=== PATIENT | male | born 1945 | race Two or more races ===

== ENCOUNTER 2021-03-11 11:44 | Inpatient (IN) | payer MEDICARE, SELFPAY ==
[~2021-03-11] VITALS: Ht 180.3 cm; Wt 93.4 kg
[2021-03-11 12:35] LABS: BASOPHILS % 0.5 % (0.0-2.0); EOSINOPHILS % 0.1 % (0.0-5.0); HEMATOCRIT. 43.1 % (42.0-52.0); HEMOGLOBIN. 15.1 g/dL (14.0-18.0); LYMPHOCYTES % 9.9 % (20.0-50.0); MEAN CORPUSCULAR HEMOGLOBIN 30.1 pg (28.0-32.0); MEAN CORPUSCULAR VOLUME 86.3 fL (80.0-94.0); MEAN PLATELET VOLUME 8.2 fl (7.4-10.4); MONOCYTES % 9.3 % (2.0-8.0); NEUTROPHILS % 80.2 % (40.0-76.0); PLATELET 177 x1000/uL (130-400); RED CELL DISTRIBUTION WIDTH 13.3 % (11.6-14.6)
[2021-03-11 12:42] LABS: CHLORIDE 111 mEq/L (98-107)
[2021-03-11 12:45] LABS: D-DIMER 2.56 mg/L FEU (<0.50); INR 1.2
[2021-03-11] MEDS ORDERED: IOHEXOL-350 100 ML BOTTLE ONE (13:59)
[2021-03-11] MEDS ORDERED: HEPARIN 5000 UNITS/ML VIAL IV SCH (14:15)
[2021-03-11] MEDS ORDERED: HEPARIN 25,000 UNITS PREMIX 250 ML IV PRN (14:15)
[2021-03-11] MEDS ORDERED: HEPARIN 80 UNITS/KG BOLUS IV SCH (15:15)
[2021-03-11] MEDS ORDERED: HEPARIN BOLUS PRN aPTT 37-44 IV (15:15)
[2021-03-11] MEDS ORDERED: HEPARIN BOLUS PRN aPTT <36 IV (15:15)
[2021-03-11] MEDS ORDERED: LIDOCAINE HCL/PF 1% 2ML VIAL ONE (15:46)
[2021-03-11] MEDS ORDERED: CLONIDINE 0.1MG TABLET PO PRN (16:00)
[2021-03-11] MEDS ORDERED: NA PHOS,M-B/NA PHOS,DI-BA ENEMA 118ML PR PRN (16:00)
[2021-03-11] MEDS ORDERED: GUAIFENESIN 200MG/10ML SUGAR FREE UDC PO PRN (16:00)
[2021-03-11] MEDS ORDERED: MORPHINE SULFATE 2 MG/ML CPJ (NOT FOR IM USE) IV PRN (16:00)
[2021-03-11] MEDS ORDERED: ACETAMINOPHEN 650MG SUPP PR PRN (16:00)
[2021-03-11] MEDS ORDERED: DILTIAZEM HCL 125 MG in DEXT 5% WATER 100 ML IV PRN (16:00)
[2021-03-11] MEDS ORDERED: DIPHENHYDRAMINE 50MG/ML VIAL IV PRN (16:00)
[2021-03-11] MEDS ORDERED: IPRATROPIUM/ALBUTEROL 0.5-3(2.5)MG/3ML NEB NEB PRN (16:00)
[2021-03-11] MEDS ORDERED: HYDROCODONE/ACETAMINOPHEN 5/325MG TABLET PO PRN (16:00)
[2021-03-11] MEDS ORDERED: ONDANSETRON HCL 4MG/2ML INJ IV PRN (16:00)
[2021-03-11] MEDS ORDERED: DOCUSATE SODIUM 100MG CAPSULE PO PRN (16:00)
[2021-03-11] MEDS ORDERED: LORAZEPAM 0.5MG TABLET PO PRN (16:00)
[2021-03-11] MEDS ORDERED: ACETAMINOPHEN 325MG TABLET PO PRN (16:00)
[2021-03-11] MEDS ORDERED: MAGNESIUM/ALUMINUM HYDROXIDE/SIMETHICONE 30ML UDC PO PRN (16:00)
[2021-03-11] MEDS ORDERED: DILTIAZEM HCL 5MG/ML 5ML VIAL IV NR (16:19)
[2021-03-11] MEDS ORDERED: ENOXAPARIN 100MG/ML SYR SUBCUT SCH ×2 (16:30→18:00)
[2021-03-11] MEDS ORDERED: NALOXONE HCL 0.4MG/ML VIAL IV PRN (16:30)
[2021-03-11] MEDS ORDERED: AZITHROMYCIN 500 MG in DEXT 5% WATER 250 ML IV SCH (16:30)
[2021-03-11] MEDS ORDERED: CEFTRIAXONE 1 G PREMIX 50 ML IV SCH (16:30)
[2021-03-11 16:38] LABS: BG BASE EXCESS -2.1 mmol/L (-2.0-2.0); BG CARBOXYHEMOGLOBIN 1.4 % (0.5-1.5); BG DEOXYHEMOGLOBIN 1.7 % (0.0-5.0); BG FRACTION INSPIRED OXYGEN 32; BG HCO3 ACT 20.6 mmol/L (22.0-26.0); BG METHEMOGLOBIN 0.2 % (0.0-1.5); BG OXYGEN SATURATION 98.3 % (92.0-98.5); BG OXYHEMOGLOBIN 96.7 % (94.0-97.0); BG PCO2 30.2 mmHg (35.0-45.0); BG PH 7.451 (7.350-7.450); BG PO2 106.8 mmHg (75.0-100.0); BG SAMPLE SITE RIGHT RADIAL; BG TOTAL HEMOGLOBIN 16.1 g/dL (12.0-18.0); BG VENT MODE NASAL CANNULA
[2021-03-11] MEDS: DILTIAZEM HCL 30MG TABLET PO SCH ×3 (18:57→23:36)
[2021-03-11] MEDS: POTASSIUM CHLORIDE 20MEQ TABLET SR PO NR ×2 (18:57→19:00)
[2021-03-11] MEDS: DIGOXIN 500MCG/2ML AMP IV NR ×2 (18:58→18:59)
[2021-03-11 22:00] VITALS: BP 151/72
[2021-03-11 22:15] VITALS: BP 151/72
[2021-03-11] MEDS: FAMOTIDINE 20MG/2ML VIAL IV SCH (23:06)
[2021-03-11] MEDS: ENOXAPARIN 100MG/ML SYR SUBCUT SCH (23:35)
[2021-03-11] MEDS: DILTIAZEM HCL 125 MG in DEXT 5% WATER 100 ML IV SCH (23:39)
[2021-03-12] VITALS (12 sets, daily range): BP systolic 113–177; BP diastolic 80–101
[2021-03-12 00:11] LABS: CREATINE KINASE 182 IU/L (39-308)
[2021-03-12 00:12] LABS: CREATINE KINASE MB FRACTION 1.4 ng/mL (0.5-3.6)
[2021-03-12] MEDS: DILTIAZEM HCL 30MG TABLET PO SCH ×2 (05:38→11:34)
[2021-03-12] MEDS: FAMOTIDINE 20MG/2ML VIAL IV SCH (08:07)
[2021-03-12 08:22] LABS: BASOPHILS % 0.2 % (0.0-2.0); EOSINOPHILS % 0.1 % (0.0-5.0); HEMATOCRIT. 41.5 % (42.0-52.0); HEMOGLOBIN. 14.3 g/dL (14.0-18.0); LYMPHOCYTES % 13.2 % (20.0-50.0); MEAN CORPUSCULAR HEMOGLOBIN 30.1 pg (28.0-32.0); MEAN CORPUSCULAR VOLUME 87.3 fL (80.0-94.0); MEAN PLATELET VOLUME 8.8 fl (7.4-10.4); NEUTROPHILS % 76.5 % (40.0-76.0); PLATELET 181 x1000/uL (130-400); RED BLOOD CELL COUNT 4.76 mill/uL (4.7-6.1); RED CELL DISTRIBUTION WIDTH 13.7 % (11.6-14.6)
[2021-03-12 08:54] LABS: CHLORIDE 107 mEq/L (98-107)
[2021-03-12 09:08] LABS: LDL CHOLESTEROL 97 mg/dL (5-100)
[2021-03-12 09:09] LABS: CREATINE KINASE 166 IU/L (39-308); CREATINE KINASE MB FRACTION < 1.0 ng/mL (0.5-3.6); HDL CHOLESTEROL 38 mg/dL (40-59); T4 FREE 1.15 ng/dL (0.76-1.46)
[2021-03-12] MEDS ORDERED: DIGOXIN 500MCG/2ML AMP IV SCH (10:00)
[2021-03-12] MEDS: ENOXAPARIN 100MG/ML SYR SUBCUT SCH ×2 (10:08→20:07)
[2021-03-12] MEDS ORDERED: ADENOSINE 3 MG/ML 2ML VIAL IV SCH (10:15)
[2021-03-12] MEDS ORDERED: POTASSIUM CHLORIDE 20MEQ TABLET SR PO SCH (10:45)
[2021-03-12 11:07] LABS: HEPATITIS B SURFACE ANTIGEN NEGATIVE
[2021-03-12] MEDS: DILTIAZEM HCL 125 MG in DEXT 5% WATER 100 ML IV SCH (14:51)
[2021-03-12] MEDS: AZITHROMYCIN 500 MG in DEXT 5% WATER 250 ML IV SCH (17:21)
[2021-03-12] MEDS: DILTIAZEM HCL 60MG TABLET PO SCH ×2 (18:00→23:20)
[2021-03-12] MEDS: CEFTRIAXONE 1,000 MG in DEXTROSE 5% WATER 50 ML IV SCH (20:03)
[2021-03-12] MEDS ORDERED: ZOLPIDEM TARTRATE 5MG TABLET PO NR (20:45)
[2021-03-13] VITALS (12 sets, daily range): BP systolic 133–153; BP diastolic 65–127
[2021-03-13] MEDS: DILTIAZEM HCL 125 MG in DEXT 5% WATER 100 ML IV SCH (03:54)
[2021-03-13] MEDS: DILTIAZEM HCL 60MG TABLET PO SCH (05:18)
[2021-03-13 06:54] LABS: BASOPHILS % 0.5 % (0.0-2.0); EOSINOPHILS % 0.5 % (0.0-5.0); HEMATOCRIT. 45.2 % (42.0-52.0); HEMOGLOBIN. 15.3 g/dL (14.0-18.0); LYMPHOCYTES % 13.4 % (20.0-50.0); MEAN CORPUSCULAR HEMOGLOBIN 29.5 pg (28.0-32.0); MEAN CORPUSCULAR VOLUME 87.4 fL (80.0-94.0); MEAN PLATELET VOLUME 8.9 fl (7.4-10.4); MONOCYTES % 8.2 % (2.0-8.0); NEUTROPHILS % 77.4 % (40.0-76.0); PLATELET 196 x1000/uL (130-400); RED BLOOD CELL COUNT 5.17 mill/uL (4.7-6.1); RED CELL DISTRIBUTION WIDTH 13.2 % (11.6-14.6)
[2021-03-13 07:09] LABS: PHOSPHORUS 2.6 mg/dL (2.5-4.9)
[2021-03-13] MEDS: ENOXAPARIN 100MG/ML SYR SUBCUT SCH ×2 (08:30→20:52)
[2021-03-13] MEDS: FAMOTIDINE 20MG/2ML VIAL IV SCH (08:30)
[2021-03-13] MEDS ORDERED: POTASSIUM CHLORIDE 20MEQ TABLET SR PO NR (10:00)
[2021-03-13] MEDS: DILTIAZEM HCL 90MG TABLET PO SCH ×2 (11:49→17:38)
[2021-03-13 12:04] LABS: BG BASE EXCESS -2.3 mmol/L (-2.0-2.0); BG CARBOXYHEMOGLOBIN 0.6 % (0.5-1.5); BG DEOXYHEMOGLOBIN 5.7 % (0.0-5.0); BG FRACTION INSPIRED OXYGEN 21; BG HCO3 ACT 20.2 mmol/L (22.0-26.0); BG METHEMOGLOBIN 0.2 % (0.0-1.5); BG OXYGEN SATURATION 94.3 % (92.0-98.5); BG OXYHEMOGLOBIN 93.5 % (94.0-97.0); BG PCO2 29.2 mmHg (35.0-45.0); BG PH 7.457 (7.350-7.450); BG PO2 67.2 mmHg (75.0-100.0); BG SAMPLE SITE RIGHT RADIAL; BG TOTAL HEMOGLOBIN 15.1 g/dL (12.0-18.0); BG VENT MODE ROOM AIR
[2021-03-13] MEDS: AZITHROMYCIN 500 MG in DEXT 5% WATER 250 ML IV SCH (18:26)
[2021-03-13] MEDS: CEFTRIAXONE 1,000 MG in DEXTROSE 5% WATER 50 ML IV SCH (20:52)
[2021-03-14] VITALS (12 sets, daily range): BP systolic 117–157; BP diastolic 53–104
[2021-03-14] MEDS: DILTIAZEM HCL 90MG TABLET PO SCH ×5 (00:03→23:31)
[2021-03-14] MEDS: DILTIAZEM HCL 125 MG in DEXT 5% WATER 100 ML IV SCH (04:54)
[2021-03-14 07:23] LABS: BASOPHILS % 0.3 % (0.0-2.0); EOSINOPHILS % 3.9 % (0.0-5.0); HEMATOCRIT. 42.3 % (42.0-52.0); HEMOGLOBIN. 14.8 g/dL (14.0-18.0); LYMPHOCYTES % 15.9 % (20.0-50.0); MEAN CORPUSCULAR HEMOGLOBIN 30.2 pg (28.0-32.0); MEAN CORPUSCULAR VOLUME 86.5 fL (80.0-94.0); MEAN PLATELET VOLUME 8.7 fl (7.4-10.4); MONOCYTES % 9.5 % (2.0-8.0); NEUTROPHILS % 70.4 % (40.0-76.0); PLATELET 215 x1000/uL (130-400); RED BLOOD CELL COUNT 4.89 mill/uL (4.7-6.1); RED CELL DISTRIBUTION WIDTH 13.6 % (11.6-14.6)
[2021-03-14] MEDS: ENOXAPARIN 100MG/ML SYR SUBCUT SCH ×2 (08:20→20:15)
[2021-03-14] MEDS: FAMOTIDINE 20MG TABLET PO SCH (08:20)
[2021-03-14] MEDS ORDERED: POTASSIUM CHLORIDE 20MEQ TABLET SR PO NR (09:00)
[2021-03-14] MEDS: METHYLPREDNISOLONE SOD SUCC 40 MG/ML VIAL IV SCH ×2 (12:44→23:33)
[2021-03-14] MEDS: IPRATROPIUM/ALBUTEROL 0.5-3(2.5)MG/3ML NEB HHN SCH ×2 (14:28→21:20)
[2021-03-14] MEDS: AZITHROMYCIN 500 MG in DEXT 5% WATER 250 ML IV SCH (17:41)
[2021-03-14] MEDS ORDERED: TEMAZEPAM 15MG CAPSULE PO PRN (19:00)
[2021-03-14] MEDS: CEFTRIAXONE 1,000 MG in DEXTROSE 5% WATER 50 ML IV SCH (20:15)
[2021-03-15] VITALS (8 sets, daily range): BP systolic 105–145; BP diastolic 53–104
[2021-03-15] MEDS: DILTIAZEM HCL 90MG TABLET PO SCH ×2 (05:36→12:47)
[2021-03-15 06:51] LABS: CHLORIDE 109 mEq/L (98-107)
[2021-03-15 07:10] LABS: HEMATOCRIT. 39.1 % (42.0-52.0); HEMOGLOBIN. 13.8 g/dL (14.0-18.0); MEAN CORPUSCULAR HEMOGLOBIN 30.5 pg (28.0-32.0); MEAN CORPUSCULAR VOLUME 86.7 fL (80.0-94.0); MEAN PLATELET VOLUME 8.9 fl (7.4-10.4); PLATELET 230 x1000/uL (130-400); RED BLOOD CELL COUNT 4.51 mill/uL (4.7-6.1); RED CELL DISTRIBUTION WIDTH 13.3 % (11.6-14.6)
[2021-03-15] MEDS: ENOXAPARIN 100MG/ML SYR SUBCUT SCH (09:08)
[2021-03-15] MEDS: FAMOTIDINE 20MG TABLET PO SCH (09:08)
[2021-03-15] MEDS: IPRATROPIUM/ALBUTEROL 0.5-3(2.5)MG/3ML NEB HHN SCH (10:23)
[2021-03-15] MEDS ORDERED: DILT60TA3 PO (11:04)
[2021-03-15] MEDS ORDERED: FAMO-135 MT (11:04)
[2021-03-15] MEDS ORDERED: BLOO1KIT74 TP (11:04)
[2021-03-15] MEDS ORDERED: P20 PO (11:04)
[2021-03-15] MEDS ORDERED: APIX5TAB PO ×2 (11:04)
[2021-03-15] MEDS ORDERED: ALBU90AE INH (11:04)
[2021-03-15] MEDS ORDERED: TEMA15CA5 MT (11:06)
[2021-03-15] MEDS: METHYLPREDNISOLONE SOD SUCC 40 MG/ML VIAL IV SCH (12:47)
[2021-03-15 14:17] LABS: PLATELET ESTIMATE NORMAL
[2021-03-15] MEDS ORDERED: APIXABAN 5 MG TABLET PO SCH (17:00)
[2021-03-15] MEDS ORDERED: AZITHROMYCIN 500 MG TABLET PO SCH (18:00)
[2021-03-18] MEDS ORDERED: APIXABAN 5 MG TABLET PO SCH (17:00)
== END 2021-03-15 14:30 | disposition home health service (06) | DRG 175 ==
LOC: ER 11:44 → 3WST 14:23 → ENRESERV 16:27
PROVIDERS: ADMIT Internal Medicine; ATTEND Internal Medicine
DX: I26.99 Other pulmonary embolism without acute cor pulmonale (principal); J18.9 Pneumonia, unspecified organism; D68.59 Other primary thrombophilia; I47.1 Supraventricular tachycardia; E87.6 Hypokalemia; I45.10 Unspecified right bundle-branch block; I48.91 Unspecified atrial fibrillation; Z20.822 Contact with and (suspected) exposure to COVID-19; K76.0 Fatty (change of) liver, not elsewhere classified; B19.20 Unspecified viral hepatitis C without hepatic coma; F10.10 Alcohol abuse, uncomplicated; R73.9 Hyperglycemia, unspecified; Y90.9 Presence of alcohol in blood, level not specified; J45.909 Unspecified asthma, uncomplicated; R06.03 Acute respiratory distress; Z79.01 Long term (current) use of anticoagulants; Z79.899 Other long term (current) drug therapy; N18.9 Chronic kidney disease, unspecified; I12.9 Hypertensive chronic kidney disease with stage 1 through stage 4 chronic kidney disease, or unspecified chronic kidney disease
CPT/HCPCS: 36415; 36600; 71045; 71275; 80048; 80053; 80061; 80162; 82375; 82550; 82553; 82805; 82962; 83036; 83735; 83880; 84100; 84439; 84443; 84484; 85025; 85379; 86705; 86709; 86803; 87340; 87426; 93005; 93306; 93970; 94618; 94640; 99285; J0153; J0456; J0696; J1160; J1644; J1650; J2920; J3490; J7060; Q9967

== ENCOUNTER 2021-03-23 11:41 | Inpatient (IN) | payer MEDICARE ==
[~2021-03-23] VITALS: Ht 180.3 cm; Wt 88.9 kg
[~2021-03-23 11:41] MED LIST: ALBU90AE INH; APIX5TAB PO; BLOO1KIT74 TP; DILT60TA3 PO; FAMO-135 MT; P20 PO; TEMA15CA5 MT
[2021-03-23 12:29] LABS: BASOPHILS % 0.3 % (0.0-2.0); HEMATOCRIT. 48.5 % (42.0-52.0); HEMOGLOBIN. 16.6 g/dL (14.0-18.0); LYMPHOCYTES % 13.1 % (20.0-50.0); MEAN CORPUSCULAR VOLUME 87.8 fL (80.0-94.0); MEAN PLATELET VOLUME 8.8 fl (7.4-10.4); MONOCYTES % 7.1 % (2.0-8.0); NEUTROPHILS % 78.5 % (40.0-76.0); PLATELET 321 x1000/uL (130-400); RED BLOOD CELL COUNT 5.53 mill/uL (4.7-6.1); RED CELL DISTRIBUTION WIDTH 13.9 % (11.6-14.6)
[2021-03-23 12:37] LABS: INR 1.1; PROTHROMBIN TIME 11.8 sec (9.6-11.0)
[2021-03-23] MEDS ORDERED: CLONIDINE 0.2MG TABLET PO NR (12:45)
[2021-03-23] MEDS: ENOXAPARIN 100MG/ML SYR SUBCUT SCH ×2 (13:45→22:30)
[2021-03-23 15:11] LABS: CHLORIDE 109 mEq/L (98-107)
[2021-03-23 15:16] LABS: ETHANOL BLOOD < 10 mg/dL
[2021-03-23 16:00] VITALS: BP 113/80
[2021-03-23 16:00] LABS: CLARITY URINE CLEAR (CLEAR); COLOR URINE YELLOW (YELLOW); KETONES URINE NEGATIVE (NEGATIVE); LEUKOCYTE ESTERASE URINE NEGATIVE (NEGATIVE); NITRITE URINE NEGATIVE (NEGATIVE); OCCULT BLOOD URINE 1+ (NEGATIVE); PROTEIN URINE NEGATIVE (NEGATIVE); SPECIFIC GRAVITY URINE 1.022 (1.005-1.030)
[2021-03-23] MEDS ORDERED: GUAIFENESIN 200MG/10ML SUGAR FREE UDC PO PRN (16:00)
[2021-03-23] MEDS ORDERED: HYDROCODONE/ACETAMINOPHEN 5/325MG TABLET PO PRN (16:00)
[2021-03-23] MEDS ORDERED: MAGNESIUM/ALUMINUM HYDROXIDE/SIMETHICONE 30ML UDC PO PRN (16:00)
[2021-03-23] MEDS ORDERED: ACETAMINOPHEN 650MG SUPP PR PRN (16:00)
[2021-03-23] MEDS ORDERED: IPRATROPIUM/ALBUTEROL 0.5-3(2.5)MG/3ML NEB NEB PRN (16:00)
[2021-03-23] MEDS ORDERED: LORAZEPAM 0.5MG TABLET PO PRN (16:00)
[2021-03-23] MEDS ORDERED: ONDANSETRON HCL 4MG/2ML INJ IV PRN (16:00)
[2021-03-23] MEDS ORDERED: DOCUSATE SODIUM 100MG CAPSULE PO PRN (16:00)
[2021-03-23] MEDS ORDERED: ACETAMINOPHEN 325MG TABLET PO PRN (16:00)
[2021-03-23] MEDS ORDERED: DILTIAZEM HCL 5MG/ML 5ML VIAL IV NR (16:00)
[2021-03-23] MEDS ORDERED: DIPHENHYDRAMINE 50MG/ML VIAL IV PRN (16:00)
[2021-03-23] MEDS ORDERED: CLONIDINE 0.1MG TABLET PO PRN (16:00)
[2021-03-23] MEDS ORDERED: NA PHOS,M-B/NA PHOS,DI-BA ENEMA 118ML PR PRN (16:00)
[2021-03-23] MEDS: METHYLPREDNISOLONE SOD SUCC 40 MG/ML VIAL IV SCH (16:10)
[2021-03-23 16:31] LABS: METHADONE URINE SCREEN NEGATIVE (NEGATIVE); OPIATES URINE SCREEN NEGATIVE (NEGATIVE); PHENCYCLIDINE URINE SCREEN NEGATIVE (NEGATIVE)
[2021-03-23 16:32] LABS: *AMPHETAMINES SCREEN URINE NEGATIVE (NEGATIVE); *BARBITURATES SCREEN URINE NEGATIVE (NEGATIVE); *BENZODIAZEPINES SCREEN URINE NEGATIVE (NEGATIVE); *COCAINE SCREEN URINE NEGATIVE (NEGATIVE); CANNABINOID URINE SCREEN NEGATIVE (NEGATIVE)
[2021-03-23] MEDS: MORPHINE SULFATE 2 MG/ML CPJ (NOT FOR IM USE) IV PRN ×2 (17:00→22:44)
[2021-03-23] MEDS: DILTIAZEM HCL 30MG TABLET PO SCH ×2 (18:18→23:58)
[2021-03-23 18:24] VITALS: BP 113/101
[2021-03-23 20:00] VITALS: BP 138/92
[2021-03-23] MEDS ORDERED: APIX5TAB PO (20:12)
[2021-03-23] MEDS: FAMOTIDINE 20MG TABLET PO SCH (20:26)
[2021-03-23] MEDS ORDERED: NALOXONE HCL 0.4MG/ML VIAL IV PRN (21:15)
[2021-03-23] MEDS: IPRATROPIUM/ALBUTEROL 0.5-3(2.5)MG/3ML NEB HHN SCH (21:15)
[2021-03-24] VITALS: BP 132/84
[2021-03-24 00:38] LABS: CREATINE KINASE 36 IU/L (39-308)
[2021-03-24 00:40] LABS: CREATINE KINASE MB FRACTION 2.7 ng/mL (0.5-3.6)
[2021-03-24] MEDS: IPRATROPIUM/ALBUTEROL 0.5-3(2.5)MG/3ML NEB HHN SCH ×2 (02:59→08:43)
[2021-03-24] MEDS: METHYLPREDNISOLONE SOD SUCC 40 MG/ML VIAL IV SCH ×2 (03:43→16:57)
[2021-03-24 04:00] VITALS: BP 132/86
[2021-03-24] MEDS: DILTIAZEM HCL 30MG TABLET PO SCH (05:42)
[2021-03-24] MEDS: MORPHINE SULFATE 2 MG/ML CPJ (NOT FOR IM USE) IV PRN ×4 (05:58→22:16)
[2021-03-24 07:55] LABS: CHLORIDE 107 mEq/L (98-107)
[2021-03-24 08:00] VITALS: BP 129/91
[2021-03-24 08:04] LABS: CREATINE KINASE 31 IU/L (39-308); T4 FREE 1.26 ng/dL (0.76-1.46)
[2021-03-24 08:06] LABS: CREATINE KINASE MB FRACTION 2.7 ng/mL (0.5-3.6)
[2021-03-24 08:17] LABS: HEMATOCRIT. 46.1 % (42.0-52.0); HEMOGLOBIN. 15.6 g/dL (14.0-18.0); MEAN CORPUSCULAR VOLUME 88.6 fL (80.0-94.0); MEAN PLATELET VOLUME 8.7 fl (7.4-10.4); PLATELET 282 x1000/uL (130-400); RED CELL DISTRIBUTION WIDTH 13.6 % (11.6-14.6)
[2021-03-24] MEDS: ENOXAPARIN 100MG/ML SYR SUBCUT SCH ×2 (09:31→21:17)
[2021-03-24] MEDS ORDERED: DILTIAZEM HCL 5MG/ML 5ML VIAL IV NR (11:00)
[2021-03-24] MEDS ORDERED: MORPHINE SULFATE 2 MG/ML CPJ (NOT FOR IM USE) IV NR (11:00)
[2021-03-24] MEDS ORDERED: LACTULOSE 20G/30ML UDC PO NR (11:00)
[2021-03-24] MEDS ORDERED: TEMAZEPAM 15MG CAPSULE PO PRN (11:00)
[2021-03-24 11:53] LABS: PLATELET ESTIMATE NORMAL
[2021-03-24 12:00] VITALS: BP 122/92
[2021-03-24] MEDS ORDERED: DILTIAZEM HCL 60MG TABLET PO SCH (12:00)
[2021-03-24] MEDS ORDERED: METOPROLOL TARTRATE 5MG/5ML VIAL IV NR (12:30)
[2021-03-24] MEDS ORDERED: DILTIAZEM HCL 90MG TABLET PO NR (12:45)
[2021-03-24] MEDS ORDERED: METOPROLOL TARTRATE 5MG/5ML VIAL IV PRN (13:00)
[2021-03-24] MEDS: IPRATROPIUM BROMIDE (0.02%) 0.5MG/2.5ML NEB HHN SCH ×2 (13:06→22:22)
[2021-03-24 16:00] VITALS: BP 136/88
[2021-03-24] MEDS: DILTIAZEM HCL 90MG TABLET PO SCH ×2 (18:31→23:24)
[2021-03-24 20:00] VITALS: BP 118/65
[2021-03-24] MEDS: FAMOTIDINE 20MG TABLET PO SCH (21:17)
[2021-03-25] VITALS: BP 112/77
[2021-03-25] MEDS: IPRATROPIUM BROMIDE (0.02%) 0.5MG/2.5ML NEB HHN SCH ×3 (02:05→13:21)
[2021-03-25 04:00] VITALS: BP_SYST 114; BP_SYST 134; BP_DIAS 56; BP_DIAS 66
[2021-03-25] MEDS: METHYLPREDNISOLONE SOD SUCC 40 MG/ML VIAL IV SCH (04:02)
[2021-03-25] MEDS: MORPHINE SULFATE 2 MG/ML CPJ (NOT FOR IM USE) IV PRN ×3 (04:03→13:52)
[2021-03-25] MEDS: DILTIAZEM HCL 90MG TABLET PO SCH (05:52)
[2021-03-25 08:00] VITALS: BP 111/70
[2021-03-25 08:00] LABS: HEMOGLOBIN. 16.1 g/dL (14.0-18.0); MEAN CORPUSCULAR VOLUME 89.7 fL (80.0-94.0); MEAN PLATELET VOLUME 8.7 fl (7.4-10.4); PLATELET 314 x1000/uL (130-400); RED BLOOD CELL COUNT 5.35 mill/uL (4.7-6.1); RED CELL DISTRIBUTION WIDTH 13.8 % (11.6-14.6)
[2021-03-25] MEDS: ENOXAPARIN 100MG/ML SYR SUBCUT SCH (08:33)
[2021-03-25 12:00] VITALS: BP 128/70
[2021-03-25] MEDS ORDERED: DILT60TA3 PO (12:04)
[2021-03-25] MEDS ORDERED: APIX5TAB PO (12:04)
[2021-03-25] MEDS ORDERED: CEFTRIAXONE 1,000 MG in DEXTROSE 5% WATER 50 ML IV SCH (12:30)
[2021-03-25] MEDS ORDERED: LEVO250T58 MT (13:26)
[2021-03-25] MEDS ORDERED: DILTIAZEM HCL 90MG TABLET PO SCH (14:00)
[2021-03-25 14:09] LABS: PLATELET ESTIMATE NORMAL
[2021-03-25 16:00] VITALS: BP 124/77
[2021-03-25 16:26] LABS: HEMATOCRIT 46.4 % (42.0-52.0); HEMOGLOBIN 15.8 g/dL (14.0-18.0); MEAN CORPUSCULAR HEMOGLOBIN 30.5 pg (28.0-32.0); MEAN CORPUSCULAR VOLUME 89.7 fL (80.0-94.0); PLATELET 275 x1000/uL (130-400); RED BLOOD CELL COUNT 5.17 mill/uL (4.7-6.1); RED CELL DISTRIBUTION WIDTH 13.9 % (11.6-14.6)
[2021-03-25 16:56] VITALS: BP 124/77
[2021-03-25 18:25] LABS: CLARITY URINE CLEAR (CLEAR); COLOR URINE YELLOW (YELLOW); KETONES URINE NEGATIVE (NEGATIVE); LEUKOCYTE ESTERASE URINE NEGATIVE (NEGATIVE); NITRITE URINE NEGATIVE (NEGATIVE); OCCULT BLOOD URINE 2+ (NEGATIVE); PROTEIN URINE NEGATIVE (NEGATIVE); UROBILINOGEN URINE 0.2 E.U./dL (0.2-1.0)
== END 2021-03-25 17:17 | disposition home or self-care (01) | DRG 309 ==
LOC: ER 11:41 → 8WST 14:20 → EDBEDREQTM 14:29 → EDBEDREQ 14:29 → ENRESERV 15:12
PROVIDERS: ADMIT Internal Medicine; ATTEND Internal Medicine
DX: I48.19 Other persistent atrial fibrillation (principal); D68.59 Other primary thrombophilia; J45.901 Unspecified asthma with (acute) exacerbation; I45.2 Bifascicular block; I48.4 Atypical atrial flutter; F10.10 Alcohol abuse, uncomplicated; K76.0 Fatty (change of) liver, not elsewhere classified; E80.6 Other disorders of bilirubin metabolism; D72.829 Elevated white blood cell count, unspecified; T38.0X5A Adverse effect of glucocorticoids and synthetic analogues, initial encounter; I13.10 Hypertensive heart and chronic kidney disease without heart failure, with stage 1 through stage 4 chronic kidney disease, or unspecified chronic kidney disease; N18.9 Chronic kidney disease, unspecified; Y90.9 Presence of alcohol in blood, level not specified; B19.20 Unspecified viral hepatitis C without hepatic coma; Z79.899 Other long term (current) drug therapy; Z79.51 Long term (current) use of inhaled steroids; Z79.01 Long term (current) use of anticoagulants; Z86.711 Personal history of pulmonary embolism; Z87.891 Personal history of nicotine dependence; Y92.89 Other specified places as the place of occurrence of the external cause; R06.03 Acute respiratory distress
CPT/HCPCS: 36415; 71045; 80048; 80053; 80305; 80320; 81003; 82550; 82553; 83735; 83880; 84145; 84439; 84443; 84484; 85025; 85027; 93005; 93970; 94640; 97162; 99285; J0696; J1650; J2270; J2920; J3490; J7060; G0480

== ENCOUNTER 2021-04-06 11:50 | Emergency (ER) | payer MEDICARE ==
[~2021-04-06] VITALS: Ht 180.3 cm; Wt 94.9 kg
[~2021-04-06 11:50] MED LIST changes: +LEVO250T58 MT; -P20 PO
[2021-04-06] MEDS ORDERED: DILTIAZEM HCL 5MG/ML 5ML VIAL IV ONE ×2 (12:15→14:45)
[2021-04-06] MEDS ORDERED: ACETAMINOPHEN WITH CODEINE 300/30MG TABLET PO ONE (12:30)
[2021-04-06] MEDS ORDERED: DILTIAZEM HCL 90MG TABLET PO ONE (12:30)
[2021-04-06 12:47] LABS: BASOPHILS % 0.6 % (0.0-2.0); EOSINOPHILS % 3.2 % (0.0-5.0); HEMATOCRIT. 43.4 % (42.0-52.0); HEMOGLOBIN. 15.1 g/dL (14.0-18.0); LYMPHOCYTES % 24.9 % (20.0-50.0); MEAN CORPUSCULAR HEMOGLOBIN 30.4 pg (28.0-32.0); MEAN PLATELET VOLUME 8.2 fl (7.4-10.4); MONOCYTES % 7.5 % (2.0-8.0); NEUTROPHILS % 63.8 % (40.0-76.0); PLATELET 110 x1000/uL (130-400); RED BLOOD CELL COUNT 4.98 mill/uL (4.7-6.1); RED CELL DISTRIBUTION WIDTH 13.7 % (11.6-14.6)
[2021-04-06 12:54] LABS: CHLORIDE 111 mEq/L (98-107)
[2021-04-06] MEDS ORDERED: HYDROCODONE/ACETAMINOPHEN 5/325MG TABLET PO PRN (13:15)
[2021-04-06] MEDS ORDERED: ENOXAPARIN 100MG/ML SYR SUBCUT SCH (14:00)
[2021-04-06] MEDS ORDERED: DILTIAZEM HCL 125 MG in DEXT 5% WATER 100 ML IV ONE (15:45)
[2021-04-06] MEDS ORDERED: DILTIAZEM HCL 125 MG in DEXT 5% WATER 100 ML IV NR (16:45)
[2021-04-06] MEDS ORDERED: DILTIAZEM HCL 125 MG in DEXT 5% WATER 100 ML IV SCH (17:30)
[2021-04-06] MEDS ORDERED: DILTIAZEM HCL 30MG TABLET PO SCH (18:00)
[2021-04-06] MEDS ORDERED: DILTIAZEM HCL 90MG TABLET PO SCH (18:00)
[2021-04-06 21:17] VITALS: BP 117/65
== END 2021-04-06 21:29 | disposition short-term general hospital (02) ==
LOC: ER 11:50 → EDBEDREQSVC 16:24 → EDBEDREQTM 16:48 → EDBEDREQ 16:48 → CANBEDREQ 19:47 → ER 21:29
DX: R00.2 Palpitations (principal); I48.91 Unspecified atrial fibrillation; Z98.890 Other specified postprocedural states
CPT/HCPCS: 36415; 71045; 80053; 83880; 84484; 85025; 93005; 93970; 96374; 96376; 99291; J3490; J7060; 96365; 96375

== ENCOUNTER 2021-09-13 08:35 | Inpatient (IN) | payer MEDICARE, MEDICAID ==
[~2021-09-13] VITALS: Ht 180.3 cm; Wt 97.1 kg
[2021-09-13] VITALS (7 sets, daily range): BP systolic 147–160; BP diastolic 82–118
[2021-09-13] MEDS ORDERED: NICARDIPINE 100MCG/ML 10ML VIAL (CATH LAB) IV ONE (08:37)
[2021-09-13] MEDS ORDERED: HEPARIN SODIUM 1,000 UNIT/1ML VIAL IV ONE (08:37)
[2021-09-13] MEDS ORDERED: NITROGLYCERIN 50MCG/ML 10ML VIAL (CATH LAB) IV ONE (08:37)
[2021-09-13] MEDS ORDERED: ASPI-1406 MT (09:22)
[2021-09-13] MEDS ORDERED: IODIXANOL 320MG/ML 100 ML BOTTLE IV ONE (11:04)
[2021-09-13] MEDS ORDERED: FENTANYL CITRATE/PF 50MCG/ML 2ML VIAL ONE (11:04)
[2021-09-13] MEDS ORDERED: MIDAZOLAM HCL 2 MG/2 ML VIAL ONE (11:04)
[2021-09-13] MEDS ORDERED: LIDOCAINE HCL 1% 30ML VIAL (10MG/ML) ONE (11:04)
[2021-09-13] MEDS ORDERED: IOHEXOL-300 100 ML BOTTLE ONE (11:47)
[2021-09-13] MEDS ORDERED: CLOPIDOGREL 75MG TABLET ONE (12:04)
[2021-09-13] MEDS ORDERED: ASPIRIN 325MG EC TABLET PO ONE (12:04)
[2021-09-13] MEDS ORDERED: HYDRALAZINE 20MG/ML VIAL ONE (12:08)
[2021-09-13] MEDS ORDERED: ACETAMINOPHEN 325MG TABLET PO PRN (12:15)
[2021-09-13] MEDS ORDERED: ATROPINE SULFATE 1MG/10ML SYR IV PRN (12:15)
[2021-09-13] MEDS ORDERED: ONDANSETRON HCL 4MG/2ML INJ IV PRN (12:15)
[2021-09-13] MEDS ORDERED: HYDROCODONE/ACETAMINOPHEN 5/325MG TABLET PO PRN (13:45)
[2021-09-13] MEDS ORDERED: NALOXONE HCL 0.4MG/ML VIAL IV PRN (14:00)
[2021-09-13] MEDS: DILTIAZEM HCL 30MG TABLET PO SCH (18:25)
[2021-09-14] VITALS (7 sets, daily range): BP systolic 131–166; BP diastolic 63–104
[2021-09-14] MEDS: DILTIAZEM HCL 30MG TABLET PO SCH ×4 (00:13→11:22)
[2021-09-14 08:11] LABS: BASOPHILS % 0.2 % (0.0-2.0); EOSINOPHILS % 3.5 % (0.0-5.0); MEAN CORPUSCULAR HEMOGLOBIN 29.3 pg (28.0-32.0); MEAN CORPUSCULAR VOLUME 84.3 fL (80.0-94.0); MEAN PLATELET VOLUME 8.4 fl (7.4-10.4); MONOCYTES % 9.2 % (2.0-8.0); NEUTROPHILS % 68.1 % (40.0-76.0); PLATELET 172 x1000/uL (130-400); RED CELL DISTRIBUTION WIDTH 14.3 % (11.6-14.6)
[2021-09-14] MEDS ORDERED: ASPIRIN 325MG TABLET PO SCH (09:00)
[2021-09-14] MEDS ORDERED: CLOPIDOGREL 75MG TABLET PO SCH (09:00)
[2021-09-14] MEDS ORDERED: POTASSIUM CHLORIDE 20MEQ TABLET SR PO SCH (10:00)
== END 2021-09-14 14:00 | disposition home or self-care (01) | DRG 247 ==
LOC: CCL 08:35 → 3WST 08:36
PROVIDERS: ADMIT Specialist; ATTEND Specialist
PROC: 027034Z Dilation of Coronary Artery, One Artery with Drug-eluting Intraluminal Device, Percutaneous Approach (ICD-10-PCS; principal; 2021-09-13)
PROC: B211YZZ Fluoroscopy of Multiple Coronary Arteries using Other Contrast (ICD-10-PCS; 2021-09-13)
DX: I25.10 Atherosclerotic heart disease of native coronary artery without angina pectoris (principal); I48.92 Unspecified atrial flutter; I10 Essential (primary) hypertension; E78.5 Hyperlipidemia, unspecified; I48.0 Paroxysmal atrial fibrillation; I45.10 Unspecified right bundle-branch block; Z20.822 Contact with and (suspected) exposure to COVID-19; F10.10 Alcohol abuse, uncomplicated; Y90.9 Presence of alcohol in blood, level not specified; Z86.711 Personal history of pulmonary embolism; Z87.891 Personal history of nicotine dependence; Z79.82 Long term (current) use of aspirin; Z79.02 Long term (current) use of antithrombotics/antiplatelets; Z79.01 Long term (current) use of anticoagulants; Z79.899 Other long term (current) drug therapy; Z86.718 Personal history of other venous thrombosis and embolism
CPT/HCPCS: 36415; 80048; 83735; 85025; 87426; 92928; 93005; 93454; C1760; C1769; C1874; C1887; C1893; C1894; J0360; J1644; J2250; J3010; J3490; Q9967

== ENCOUNTER 2023-01-03 17:03 | Emergency (ER) | payer MEDICARE, MEDICAID ==
[~2023-01-03] VITALS: Ht 172.7 cm; Wt 73.0 kg
[~2023-01-03 17:03] MED LIST changes: +ASPI-1406 MT; -LEVO250T58 MT; +LEVO250T74 MT
[2023-01-03 17:09] VITALS: O2SAT 94
[2023-01-03] MEDS ORDERED: ONDANSETRON 4MG ODT PO ONE (18:30)
[2023-01-03] MEDS ORDERED: ACETAMINOPHEN 325MG TABLET PO ONE (18:30)
[2023-01-03 19:07] LABS: HEMOGLOBIN 14.3 g/dL (14.0-18.0); MEAN CORPUSCULAR HEMOGLOBIN 29.8 pg (28.0-32.0); MEAN CORPUSCULAR VOLUME 89.6 fL (80.0-94.0); PLATELET 136 x1000/uL (130-400); RED CELL DISTRIBUTION WIDTH 13.7 % (11.6-14.6)
[2023-01-03 19:24] LABS: CHLORIDE 106 mEq/L (98-107)
[2023-01-03] MEDS ORDERED: TOPUD MT (19:43)
[2023-01-03 20:49] VITALS: BP 128/81; PULSE 95; RESP 18; TEMP 98.3
== END 2023-01-03 20:53 | disposition home or self-care (01) ==
LOC: ER 17:03
DX: J06.9 Acute upper respiratory infection, unspecified (principal); M79.10 Myalgia, unspecified site; R51.9 Headache, unspecified; I48.91 Unspecified atrial fibrillation
CPT/HCPCS: 99284; 71045; 80048; 83690; 85027; 84484; 36415; Q0162

== ENCOUNTER 2023-11-13 13:50 | Emergency (ER) | payer MEDICARE, MEDICAID ==
[~2023-11-13] VITALS: Ht 180.3 cm; Wt 79.0 kg
[~2023-11-13 13:50] MED LIST changes: +TOPUD MT
[2023-11-13 13:53] VITALS: O2SAT 97
[2023-11-13 14:58] LABS: BASOPHILS % 0.4 % (0.0-2.0); EOSINOPHILS % 1.7 % (0.0-5.0); HEMATOCRIT. 41.8 % (42.0-52.0); HEMOGLOBIN. 14.2 g/dL (14.0-18.0); LYMPHOCYTES % 19.2 % (20.0-50.0); MEAN CORPUSCULAR HGB CONC 34.1 g/dL (31.0-37.0); MEAN PLATELET VOLUME 8.4 fl (7.4-10.4); MONOCYTES % 8.2 % (2.0-8.0); NEUTROPHILS % 70.5 % (40.0-76.0); PLATELET 219 x1000/uL (130-400); POTASSIUM 4.3 mEq/L (3.5-5.1); RED BLOOD CELL COUNT 4.59 mill/uL (4.7-6.1); WHITE BLOOD COUNT 9.5 x1000/uL (4.5-11.0)
[2023-11-13 14:59] LABS: CALCIUM 10.2 mg/dL (8.7-10.4)
[2023-11-13 15:04] LABS: CREATININE 1.6 mg/dL (0.6-1.3)
[2023-11-13] MEDS ORDERED: KETOROLAC 30MG/ML VIAL IV ONE (15:45)
[2023-11-13] MEDS ORDERED: SODIUM CHLORIDE 0.9% 1,000 ML IV ONE (15:45)
[2023-11-13] MEDS ORDERED: CEFTRIAXONE 1GM/50ML 50 ML IV ONE (15:45)
[2023-11-13] MEDS ORDERED: P50 MT (16:18)
[2023-11-13] MEDS ORDERED: DICL100G58 TP (16:18)
[2023-11-13] MEDS ORDERED: KETOROLAC 30MG/ML VIAL IM ONE (16:30)
[2023-11-13] MEDS ORDERED: PREDNISONE 20MG TABLET PO ONE (16:30)
[2023-11-13 16:43] VITALS: BP 132/82; PULSE 93; RESP 20; TEMP 98.3
== END 2023-11-13 16:50 | disposition home or self-care (01) ==
LOC: ER 14:28
DX: M13.841 Other specified arthritis, right hand (principal); Z98.890 Other specified postprocedural states
CPT/HCPCS: 99284; 80048; 85025; 36415; 73130; J7512; J1885; J7030